=== PATIENT | female | born 1970 ===

== ENCOUNTER 2022-08-13 06:41 | Day surgery (SDC) | payer OTHER ==
[~2022-08-13] VITALS: Ht 175.3 cm; Wt 95.7 kg
[~2022-08-13 06:41] MED LIST: DIOVAN320 MG PO; LIPITOR40 M1 PO; METFORMIN HCL1000 M2 PO; [UNRECOGNIZED DRUG - OTHER] SUBCUTANEO
== END 2022-08-13 15:55 | disposition home or self-care (01) ==
LOC: CIR.AMB 06:41
PROVIDERS: ATTEND Obstetrics & Gynecology Gynecologic Oncology
DX: D06.9 Carcinoma in situ of cervix, unspecified (principal); Z20.822 Contact with and (suspected) exposure to COVID-19; N39.0 Urinary tract infection, site not specified; I10 Essential (primary) hypertension; Z88.6 Allergy status to analgesic agent; Z91.013 Allergy to seafood